=== PATIENT | male | born 1960 | race Caucasian/White ===

== ENCOUNTER 2016-08-15 15:47 | Emergency (ER) | payer OTHER ==
[~2016-08-15] VITALS: Ht 172.7 cm; Wt 86.3 kg
[2016-08-15] MEDS ORDERED: COLACE100 MG PO (19:15)
[2016-08-15] MEDS ORDERED: PERCOCET 5/31 TABLET PO (19:15)
[2016-08-15 19:28] LABS: BASOPHIL COUNT 0.1 K/uL (0-0.1); EOSINOPHIL (%) 3.6 % (0-5); EOSINOPHIL COUNT 0.4 K/uL (0-0.3); HEMATOCRIT 43.3 % (38.0-50.0); IMMATURE GRANULOCYTE (%) 0.5 % (0.0-0.7); IMMATURE GRANULOCYTE COUNT 0.1 K/uL; INSTRUMENT ABS NEUTROPHIL CT 8.5 K/uL; MCH 34.7 PG (29.0-34.0); MCHC 34.9 G/DL (30.0-36.0); MCV 99.5 FL (86-99); MEAN PLAT.VOLUME 9.4 uM^3 (9.0-12.4); MONOCYTE (%) 9.8 % (3-12); MONOCYTE COUNT 1.1 K/uL (0-0.8); NEUTROPHIL (%) 76.3 % (45-76); NEUTROPHIL COUNT 8.5 K/uL (1.8-6.4); PLATELET COUNT 174 K/uL (156-360); RBC DIS.WIDTH-CV 12.7 % (11.8-14.6); RBC DIS.WIDTH-SD 46.4 % (39-53); RED BLOOD COUNT 4.35 M/uL (4.00-5.50); WHITE BLOOD COUNT 11.2 K/uL (4.1-10.2)
[2016-08-15 19:39] LABS: CHLORIDE 105 mEq/L (99-109); POTASSIUM 4.7 mEq/L (3.7-5.4); SODIUM 143 mEq/L (136-147)
[2016-08-15 19:41] LABS: GLUCOSE 138 mg/dL (70-99)
[2016-08-15 19:43] LABS: ANION GAP 14 MEQ/L (2-14); TOTAL BILIRUBIN 1.6 mg/dL (0.0-1.0)
[2016-08-15 19:45] LABS: ALKALINE PHOSPHATASE 56 IU/L (3-129); GFR ESTIMATE (CALCULATED) > 59 mL/min/
[2016-08-15 19:46] LABS: UREA NITROGEN (BUN) 8 mg/dL (9-23)
[2016-08-15 22:02] VITALS: BP 154/87
[2016-08-16] MEDS ORDERED: CORGARD40 MG PO (14:57)
[2016-08-16] MEDS ORDERED: NORVASC5 MG PO (14:58)
[2016-08-16] MEDS ORDERED: LO-DOSE ASPIRIN81 M2 PO (14:58)
[2016-08-16] MEDS ORDERED: FISH OIL 1,0001 EAC7 PO (14:58)
[2016-08-16] MEDS ORDERED: PREVACID 24HR15 MG PO (14:58)
== END 2016-08-15 22:09 | disposition home or self-care (01) ==
LOC: EME → EDBD 15:47 → EME 22:09
PROVIDERS: Emergency Medicine
PROC: 0SSGXZZ Reposition Left Ankle Joint, External Approach (ICD-10-PCS; principal; 2016-08-15)
DX: S82.842A Displaced bimalleolar fracture of left lower leg, initial encounter for closed fracture (principal); V00.121A Fall from non-in-line roller-skates, initial encounter; Y93.51 Activity, roller skating (inline) and skateboarding; E78.5 Hyperlipidemia, unspecified; I10 Essential (primary) hypertension
CPT/HCPCS: 71010; 73610; 80053; 85025; 93005; 99281; 99285; J1170; J1885; J2270; J2405; J7050

== ENCOUNTER 2016-08-18 10:54 | Day surgery (SDC) | payer OTHER ==
[~2016-08-18] VITALS: Ht 172.7 cm; Wt 86.2 kg
[~2016-08-18 10:54] MED LIST: COLACE100 MG PO; CORGARD40 MG PO; FISH OIL 1,0001 EAC7 PO; LO-DOSE ASPIRIN81 M2 PO; NORVASC5 MG PO; PERCOCET 5/31 TABLET PO; PREVACID 24HR15 MG PO
[2016-08-18 11:49] VITALS: BP 147/73
[2016-08-18 17:51] VITALS: BP 149/87
[2016-08-18 18:48] VITALS: BP 147/77
[2016-08-18 20:50] VITALS: BP 141/66
[2016-08-18 22:03] VITALS: BP 149/89
== END 2016-08-18 22:03 | disposition home or self-care (01) ==
LOC: SDC 10:54
PROC: 0QSK04Z Reposition Left Fibula with Internal Fixation Device, Open Approach (ICD-10-PCS; principal; 2016-08-18)
DX: S82.853A Displaced trimalleolar fracture of unspecified lower leg, initial encounter for closed fracture (principal); V00.128A Other non-in-line roller-skating accident, initial encounter; Y92.29 Other specified public building as the place of occurrence of the external cause; Y99.8 Other external cause status; Y93.51 Activity, roller skating (inline) and skateboarding; I10 Essential (primary) hypertension; Z82.49 Family history of ischemic heart disease and other diseases of the circulatory system; Z83.3 Family history of diabetes mellitus; Z80.9 Family history of malignant neoplasm, unspecified; Z88.8 Allergy status to other drugs, medicaments and biological substances
CPT/HCPCS: 73600; 76000; C1713; J0690; J2250; J2405; J2795; J3010; S0020